=== PATIENT | male | born 1965 | race Caucasian/White ===

== ENCOUNTER 2018-02-06 20:47 | Emergency (ER) | payer BC, OTHER ==
[2018-02-06 21:00] VITALS: BP 143/93
[2018-02-06] MEDS ORDERED: OFLOXACIN 0.3% SOLN PREPACK OPHT.BTL TAKEHOME ONE (21:19)
--- NOTE | 2018-02-06 21:21 | EDPHY ---
H & P Stated Complaint: r eye irritation itching Time Seen by Provider: 02/06/18 21:05 HPI/ROS: CHIEF COMPLAINT: Right eye irritation HISTORY OF PRESENT ILLNESS: The patient is a 52-year-old man who comes to the emergency department complaining of irritation in his right eye. It began about to 3 hr ago. He is visiting from [place]. He states that feels similar to 7 years ago when he had a corneal abrasion. No known seasonal allergies. No known foreign bodies or trauma. He still has normal vision with glasses on. No fevers. He has had clear tears but no discharge. He has been wearing sunglasses. No significant pain. No vision loss REVIEW OF SYSTEMS: Constitutional: denies: chills, fever, recent illness, recent injury EENTM: See HPI Respiratory: denies: cough, shortness of breath Cardiac: denies: chest pain, irregular heart rate, lightheadedness, palpitations Gastrointestinal/Abdominal: denies: abdominal pain, diarrhea, nausea, vomiting, blood streaked stools Genitourinary: denies: dysuria, frequency, hematuria, pain Musculoskeletal: denies: joint pain, muscle pain Skin: denies: lesions, rash, jaundice, bruising Neurological: denies: headache, numbness, paresthesia, tingling, dizziness, weakness Hematologic/Lymphatic: denies: blood clots, easy bleeding, easy bruising Immunologic/allergic: denies: HIV/AIDS, transplant EXAM: GENERAL: Well-appearing, well-nourished and in no acute distress. HEAD: Atraumatic, normocephalic. EYES: Right eye with injected conjunctiva, itchy, viewed through slit-lamp exam , no cell and flares. No visible corneal abrasion when examined with fluorescein stain, negative Tobias sign. eyelids everted, no foreign body ENT: TMs normal, nares patent, oropharynx clear without exudates. Moist mucous membranes. NECK: Normal range of motion, supple without lymphadenopathy or JVD. LUNGS: Breath sounds clear to auscultation bilaterally and equal. No wheezes rales or rhonchi. HEART: Regular rate and rhythm without murmurs, rubs or gallops. ABDOMEN: Soft, nontender, normoactive bowel sounds. No guarding, no rebound. No masses appreciated. BACK: No CVA tenderness, no spinal tenderness, step-offs or deformities EXTREMITIES: Normal range of motion, no pitting or edema. No clubbing or cyanosis. NEUROLOGICAL: Cranial nerves II through XII grossly intact. Normal speech, normal gait. 5/5 strength, normal movement in all extremities, normal sensation PSYCH: Normal mood, normal affect. SKIN: Warm, dry, normal turgor, no visible rashes or lesions. Source: Patient Exam Limitations: No limitations - Personal History Current Tetanus/Diphtheria Vaccine: Yes Current Tetanus Diphtheria and Acellular Pertussis (TDAP): Yes - Medical/Surgical History Hx Asthma: No Hx Chronic Respiratory Disease: No Hx Diabetes: No Hx Cardiac Disease: No Hx Renal Disease: No Hx Cirrhosis: No Hx Alcoholism: No Hx HIV/AIDS: No Hx Splenectomy or Spleen Trauma: No - Family History Significant Family History: No pertinent family hx - Social History Smoking Status: Never smoked Alcohol Use: None Constitutional: Initial Vital Signs Temperature (C) 36.3 C 02/06/18 20:56 Heart Rate 78 02/06/18 20:56 Respiratory Rate 18 02/06/18 20:56 Blood Pressure 143/93 H 02/06/18 20:56 O2 Sat (%) 96 02/06/18 20:56 O2 Delivery Mode Room Air Allergies/Adverse Reactions: No Known Allergies Allergy (Unverified 02/06/18 20:56) Home Medications: Medication Instructions Recorded NK [No Known Home Meds] 02/06/18 Medical Decision Making ED Course/Re-evaluation: Patient's symptoms and exam were consistent with conjunctivitis. We discussed the different types. This was rather rapid in onset. I suspect allergic a viral but we will start him on Ocuflox. We discussed follow up with Ophthalmology. He and his family are happy with this plan and decline further workup or testing at this time. Differential Diagnosis: Partial list of the Differential diagnosis considered include but were not limited to; corneal abrasion, conjunctivitis, allergic conjunctivitis, viral conjunctivitis and although unlikely based on the history and physical exam, I also considered glaucoma, trauma, foreign body, iritis. I discussed these differential diagnoses and the plan with the patient as well as the usual and expected course. The patient understands that the diagnosis is provisional and that in medicine we are not always correct and that further workup is often warranted. Usual and customary warnings were given. All of the patient's questions were answered. The patient was instructed to return to the emergency department should the symptoms at all worsen or return, otherwise to followup with the physician as we discussed. - Data Points Medications Given: Discontinued Medications Ofloxacin (Ocuflox 0.3% Opht Drops Prepack) 1 btl PAM BHATTNOW ONE Stop: 02/06/18 21:20 Last Admin: 02/06/18 21:28 Dose: 1 btl Departure - Departure Disposition: Home, Routine, Self-Care Clinical Impression: Conjunctivitis, right eye Qualifiers: Conjunctivitis type: unspecified Qualified Code(s): H10.9 - Unspecified conjunctivitis Condition: Fair Instructions: Ofloxacin (Into the eye), Conjunctivitis (ED) Additional Instructions: 2 drops every 4 hr for 4 days or until you follow up with Ophthalmology. Referrals: ALICIA BARTON [Other] - As per Instructions Juventino Rothman PA [Physician Security Consultant] - As per Instructions
== END 2018-02-06 21:35 | disposition home or self-care (01) ==
DX: H10.9 Unspecified conjunctivitis (principal)